=== PATIENT | female | born 1935 | race Caucasian/White ===

== ENCOUNTER 2016-03-15 11:25 | Outpatient (CLI) | payer MEDICARE, OTHER | END 2016-03-15 11:26 | disposition home or self-care (01) | DX: I48.91 Unspecified atrial fibrillation (principal); Z79.01 Long term (current) use of anticoagulants ==

== ENCOUNTER 2016-04-12 11:28 | Outpatient (CLI) | payer MEDICARE, OTHER | END 2016-04-12 11:29 | disposition home or self-care (01) | DX: I48.91 Unspecified atrial fibrillation (principal); Z79.01 Long term (current) use of anticoagulants ==

== ENCOUNTER 2016-04-26 13:29 | Outpatient (CLI) | payer MEDICARE, OTHER | END 2016-04-26 13:30 | disposition home or self-care (01) | DX: I48.91 Unspecified atrial fibrillation (principal); Z79.01 Long term (current) use of anticoagulants ==

== ENCOUNTER 2016-05-10 09:30 | Outpatient (CLI) | payer MEDICARE, OTHER | END 2016-05-10 09:31 | DX: I48.91 Unspecified atrial fibrillation (principal); Z79.01 Long term (current) use of anticoagulants ==

== ENCOUNTER 2016-05-24 11:56 | Outpatient (CLI) | payer MEDICARE, OTHER | END 2016-05-24 11:57 | disposition home or self-care (01) | DX: I48.91 Unspecified atrial fibrillation (principal); Z79.01 Long term (current) use of anticoagulants ==

== ENCOUNTER 2016-06-21 09:45 | Outpatient (CLI) | payer MEDICARE, OTHER | END 2016-06-21 23:59 | disposition home or self-care (01) | DX: I48.91 Unspecified atrial fibrillation (principal); Z79.01 Long term (current) use of anticoagulants ==

== ENCOUNTER 2016-06-28 13:22 | Outpatient (CLI) | payer MEDICARE, OTHER | END 2016-06-28 13:23 | disposition home or self-care (01) | DX: I48.91 Unspecified atrial fibrillation (principal); Z79.01 Long term (current) use of anticoagulants ==

== ENCOUNTER 2016-07-12 13:44 | Outpatient (CLI) | payer MEDICARE, OTHER | END 2016-07-12 23:59 | disposition home or self-care (01) | LOC: LAB.N 13:44 | PROVIDERS: ATTEND Internal Medicine | DX: I48.91 Unspecified atrial fibrillation (principal); Z79.01 Long term (current) use of anticoagulants | CPT/HCPCS: 85610 ==

== ENCOUNTER 2016-08-09 08:00 | Outpatient (CLI) | payer MEDICARE, OTHER | END 2016-08-09 08:01 | disposition home or self-care (01) | LOC: LAB.N 08:00 | PROVIDERS: ATTEND Internal Medicine | DX: I48.91 Unspecified atrial fibrillation (principal); Z79.01 Long term (current) use of anticoagulants | CPT/HCPCS: 85610 ==

== ENCOUNTER 2016-09-06 08:57 | Outpatient (CLI) | payer MEDICARE, OTHER | END 2016-09-06 23:59 | disposition home or self-care (01) | LOC: LAB.N 08:57 | PROVIDERS: ATTEND Internal Medicine | DX: I48.91 Unspecified atrial fibrillation (principal) | CPT/HCPCS: 85610 ==

== ENCOUNTER 2016-10-11 08:00 | Outpatient (CLI) | payer MEDICARE, OTHER | END 2016-10-11 08:01 | disposition home or self-care (01) | LOC: LAB.N 08:00 | PROVIDERS: ATTEND Internal Medicine | DX: I48.91 Unspecified atrial fibrillation (principal); Z79.01 Long term (current) use of anticoagulants | CPT/HCPCS: 85610 ==

== ENCOUNTER 2016-11-08 20:24 | Outpatient (CLI) | payer MEDICARE, OTHER | END 2016-11-08 20:25 | disposition home or self-care (01) | LOC: LAB.N 20:24 | PROVIDERS: ATTEND Internal Medicine | DX: I48.91 Unspecified atrial fibrillation (principal); Z79.01 Long term (current) use of anticoagulants | CPT/HCPCS: 85610 ==

== ENCOUNTER 2016-11-22 09:13 | Outpatient (CLI) | payer MEDICARE, OTHER | END 2016-11-22 09:14 | disposition home or self-care (01) | LOC: LAB.N 09:13 | PROVIDERS: ATTEND Internal Medicine | DX: I48.91 Unspecified atrial fibrillation (principal); Z79.01 Long term (current) use of anticoagulants | CPT/HCPCS: 85610 ==

== ENCOUNTER 2016-12-27 10:00 | Outpatient (CLI) | payer MEDICARE, OTHER | END 2016-12-27 10:01 | disposition home or self-care (01) | LOC: LAB.N 10:00 | PROVIDERS: ATTEND Internal Medicine | DX: I48.91 Unspecified atrial fibrillation (principal); Z79.01 Long term (current) use of anticoagulants | CPT/HCPCS: 85610 ==

== ENCOUNTER 2016-12-27 10:13 | Outpatient (CLI) | payer MEDICARE, OTHER | END 2016-12-27 10:14 | disposition home or self-care (01) | LOC: LAB 10:13 | PROVIDERS: ATTEND Internal Medicine | DX: Z53.9 Procedure and treatment not carried out, unspecified reason (principal) ==

== ENCOUNTER 2017-01-24 15:08 | Outpatient (CLI) | payer MEDICARE, OTHER | END 2017-01-24 15:09 | disposition home or self-care (01) | LOC: LAB.N 15:08 | PROVIDERS: ATTEND Internal Medicine | DX: I48.91 Unspecified atrial fibrillation (principal); Z79.01 Long term (current) use of anticoagulants | CPT/HCPCS: 85610 ==

== ENCOUNTER 2017-01-31 08:00 | Outpatient (CLI) | payer MEDICARE, OTHER | END 2017-01-31 23:59 | LOC: LAB.N 08:00 | PROVIDERS: ATTEND Internal Medicine | DX: Z53.9 Procedure and treatment not carried out, unspecified reason (principal) ==

== ENCOUNTER 2017-02-02 15:08 | Outpatient (CLI) | payer MEDICARE, OTHER | END 2017-02-02 15:09 | disposition home or self-care (01) | LOC: LAB.N 15:08 | PROVIDERS: ATTEND Internal Medicine | DX: I48.91 Unspecified atrial fibrillation (principal); Z79.01 Long term (current) use of anticoagulants | CPT/HCPCS: 85610 ==

== ENCOUNTER 2017-02-16 10:38 | Outpatient (CLI) | payer MEDICARE, OTHER | END 2017-02-16 10:39 | disposition home or self-care (01) | LOC: LAB.N 10:38 | PROVIDERS: ATTEND Internal Medicine | DX: I48.91 Unspecified atrial fibrillation (principal); Z79.01 Long term (current) use of anticoagulants | CPT/HCPCS: 85610 ==

== ENCOUNTER 2017-03-16 09:41 | Outpatient (CLI) | payer MEDICARE, OTHER | END 2017-03-16 09:42 | disposition home or self-care (01) | LOC: LAB.N 09:41 | PROVIDERS: ATTEND Internal Medicine | DX: I48.91 Unspecified atrial fibrillation (principal); Z79.01 Long term (current) use of anticoagulants | CPT/HCPCS: 85610 ==

== ENCOUNTER 2017-04-13 09:40 | Outpatient (CLI) | payer MEDICARE, OTHER | END 2017-04-13 09:41 | disposition home or self-care (01) | LOC: LAB.N 09:40 | PROVIDERS: ATTEND Internal Medicine | DX: I48.91 Unspecified atrial fibrillation (principal); Z79.01 Long term (current) use of anticoagulants | CPT/HCPCS: 85610 ==

== ENCOUNTER 2017-04-25 10:35 | Outpatient (CLI) | payer MEDICARE, OTHER | END 2017-04-25 10:36 | disposition home or self-care (01) | LOC: LAB.N 10:35 | PROVIDERS: ATTEND Internal Medicine | DX: I48.91 Unspecified atrial fibrillation (principal); Z79.01 Long term (current) use of anticoagulants | CPT/HCPCS: 85610 ==

== ENCOUNTER 2017-04-27 06:51 | Day surgery (SDC) | payer MEDICARE, OTHER ==
[2017-04-27] MEDS ORDERED: KETOROLAC 0.45% OPHTH DROPS ONE (07:00)
[2017-04-27] MEDS ORDERED: CYCLOPENTOLATE 1% OPHTH DROPS 2 ML ONE (07:00)
[2017-04-27] MEDS ORDERED: PROPARACAINE 0.5% OPHTH DROPS 15 ML ONE (07:00)
[2017-04-27] MEDS ORDERED: PHENYLEPHRINE 2.5% OPHTH 2 ML DROPS ONE (07:00)
[2017-04-27] MEDS ORDERED: TIMOLOL 0.5% OPHTH DROPS ONE (07:03)
[2017-04-27] MEDS ORDERED: BRIMONIDINE 0.2% OPHTH DROPS 5 ML ONE (07:03)
[2017-04-27] MEDS ORDERED: PHENYLEPHRINE 2.5% OPHTH 2 ML DROPS RIGHTEYE ONE (07:20)
[2017-04-27] MEDS ORDERED: CYCLOPENTOLATE 1% OPHTH DROPS 2 ML RIGHTEYE ONE (07:20)
[2017-04-27] MEDS ORDERED: KETOROLAC 0.45% OPHTH DROPS RIGHTEYE ONE (07:20)
[2017-04-27] MEDS ORDERED: PROPARACAINE 0.5% OPHTH DROPS 15 ML RIGHTEYE ONE ×2 (07:20→08:10)
[2017-04-27] MEDS ORDERED: LACTATED RINGERS 500 ML IV ONE (07:28)
[2017-04-27] MEDS ORDERED: MIDAZOLAM 2 MG/2 ML VIAL IVP ONE (08:05)
[2017-04-27] MEDS ORDERED: BRIMONIDINE 0.2% OPHTH DROPS 5 ML OPTH ONE (08:08)
[2017-04-27] MEDS ORDERED: EPINEPHrine 1 MG/ML AMP IVP ONE (08:08)
[2017-04-27] MEDS ORDERED: CHONDR SULF/HYALURONATE SYRINGE IO ONE (08:09)
[2017-04-27] MEDS ORDERED: TIMOLOL 0.5% OPHTH DROPS OPTH ONE (08:09)
[2017-04-27] MEDS ORDERED: BSS/LIDOCAINE/EPINEPHRINE 1 ML SYRINGE IO ONE ×2 (08:09)
[2017-04-27] MEDS ORDERED: TRIAMCIN/MOXIFLOX/VANCO 1 ML VIAL IO ONE (08:09)
[2017-04-27 09:01] VITALS: BP 140/80
--- NOTE | 2017-04-27 09:03 | OPERATIVE REPORT ---
DATE OF SERVICE: 04/27/2017 Physician: Jonathon Galvez MD PREOPERATIVE DIAGNOSIS: Visually significant cataract, right eye. This was her first cataract surgery. POSTOPERATIVE DIAGNOSIS: Visually significant cataract, right eye. This was her first cataract surgery. NAME OF PROCEDURE: Phacoemulsification with posterior chamber intraocular lens implant, right eye. SURGEON: Jonathon Galvez MD ANESTHESIA: Monitored anesthesia care. COMPLICATIONS: None. OPERATIVE INDICATIONS: This is a 81-year-old woman with progressive vision loss in the right eye due to 4+ nuclear sclerotic and 1+ cortical cataract. Best corrected visual acuity was 20/25 with glare to 20/400 in the right eye. INDICATIONS FOR SURGERY: Overall decrease in vision, and difficulty reading. She was consented at length concerning the risks and benefits of cataract surgery, after which she expressed a desire to proceed with surgery. OPERATIVE PROCEDURE: The patient was taken into OR #3 and placed under monitored anesthesia care. A surgical timeout was conducted confirming correct patient, correct procedure, and correct surgical site. She was given topical anesthesia, and then prepped and draped in the usual sterile fashion. The eye was entered at the 12 and 9 o'clock positions. Intracameral Shugarcaine was injected into the anterior chamber, followed by Viscoat. A continuous-tear curvilinear capsulorrhexis was performed. The nucleus was hydrodissected and phacoemulsified. The cortex was evacuated using automated infusion aspiration. Provisc was injected into the capsular bag, and a 21.5 diopter intraocular lens was inserted in the bag. Approximately 0.8 mL of a mixture of triamcinolone and moxifloxacin was injected subconjunctivally in the superior quadrant for infection and inflammation prophylaxis. I and A was used to evacuate the viscoelastic material. The eye was inflated to physiologic pressure using a balanced salt solution and found to be watertight. The patient was taken from the operating room in good condition and given postoperative instructions. TD: 04/27/2017 09:02
== END 2017-04-27 06:52 | disposition home or self-care (01) ==
LOC: SDS 06:51
PROVIDERS: ATTEND Ophthalmology
PROC: 08RJ3JZ Replacement of Right Lens with Synthetic Substitute, Percutaneous Approach (ICD-10-PCS; principal; 2017-04-27 08:00)
DX: H25.811 Combined forms of age-related cataract, right eye (principal); I48.91 Unspecified atrial fibrillation; Z79.01 Long term (current) use of anticoagulants; I10 Essential (primary) hypertension
CPT/HCPCS: 66984; A9270; J3490; V2632

== ENCOUNTER 2017-05-09 09:11 | Outpatient (CLI) | payer MEDICARE, OTHER | END 2017-05-09 09:12 | disposition home or self-care (01) | LOC: LAB.N 09:11 | PROVIDERS: ATTEND Internal Medicine | DX: I48.91 Unspecified atrial fibrillation (principal); Z79.01 Long term (current) use of anticoagulants | CPT/HCPCS: 85610 ==

== ENCOUNTER 2017-06-06 08:00 | Outpatient (CLI) | payer MEDICARE, OTHER | END 2017-06-06 08:01 | disposition home or self-care (01) | LOC: LAB.N 08:00 | PROVIDERS: ATTEND Internal Medicine | DX: I48.91 Unspecified atrial fibrillation (principal); Z79.01 Long term (current) use of anticoagulants | CPT/HCPCS: 85610 ==

== ENCOUNTER 2017-06-15 07:44 | Day surgery (SDC) | payer MEDICARE, OTHER ==
[~2017-06-15 07:44] MED LIST: BRIMONIDINE 0.2% OPHTH DROPS 5 ML ONE; PROPARACAINE 0.5% OPHTH DROPS 15 ML ONE; TIMOLOL 0.5% OPHTH DROPS ONE
[2017-06-15] MEDS ORDERED: LACTATED RINGERS 1,000 ML IV ONE (08:08)
[2017-06-15] MEDS ORDERED: KETOROLAC 0.45% OPHTH DROPS ONE (08:12)
[2017-06-15] MEDS ORDERED: PROPARACAINE 0.5% OPHTH DROPS 15 ML ONE (08:13)
[2017-06-15] MEDS ORDERED: CYCLOPENTOLATE 1% OPHTH DROPS 2 ML ONE (08:13)
[2017-06-15] MEDS ORDERED: PHENYLEPHRINE 2.5% OPHTH 2 ML DROPS ONE (08:13)
[2017-06-15] MEDS ORDERED: BRIMONIDINE 0.2% OPHTH DROPS 5 ML OPTH ONE (09:20)
[2017-06-15] MEDS ORDERED: EPINEPHrine 1 MG/ML AMP IVP ONE (09:20)
[2017-06-15] MEDS ORDERED: BSS/LIDOCAINE/EPINEPHRINE 1 ML SYRINGE IO ONE (09:21)
[2017-06-15] MEDS ORDERED: TIMOLOL 0.5% OPHTH DROPS OPTH ONE (09:21)
[2017-06-15] MEDS ORDERED: CHONDR SULF/HYALURONATE SYRINGE IO ONE (09:21)
[2017-06-15] MEDS ORDERED: PROPARACAINE 0.5% OPHTH DROPS 15 ML LEFTEYE ONE (09:22)
[2017-06-15] MEDS ORDERED: TRIAMCIN/MOXIFLOX/VANCO 1 ML VIAL IO ONE ×2 (09:22)
[2017-06-15 09:41] VITALS: BP 179/68
--- NOTE | 2017-06-15 09:56 | OPERATIVE REPORT ---
DATE OF SERVICE: 06/15/2017 Physician: Jonathon Galvez MD DATE OF SURGERY: 06/15/2017 PREOPERATIVE DIAGNOSIS: Visually significant cataract, left eye. Cataract surgery was performed on the right eye on 04/27/2017. POSTOPERATIVE DIAGNOSIS: Visually significant cataract, left eye. Cataract surgery was performed on the right eye on 04/27/2017. PROCEDURE: Phacoemulsification with posterior chamber intraocular lens implant, left eye. SURGEON: Jonathon Galvez MD ANESTHESIA: Monitored anesthesia care. COMPLICATIONS: None. OPERATIVE INDICATIONS: This is a 81-year-old woman with progressive vision loss in the left eye due to 4+ nuclear sclerotic and trace posterior subcapsular cataract. Best corrected visual acuity was 20/30 with glare to 20/400 in the left eye. Indications for surgery are overall decrease in vision, difficulty seeing words on the computer screen, and difficulty reading. She was consented at length concerning risks and benefits of cataract surgery, after which she expressed a desire to proceed with surgery. OPERATIVE PROCEDURE: The patient was taken to OR #3 and placed under monitored anesthesia care. A surgical timeout was conducted confirming correct patient, correct procedure, and correct surgical site. She was given topical anesthesia, and then prepped and draped in the usual sterile fashion. The eye was entered at the 6 and 3 o'clock positions. Intracameral Shugarcaine was injected into the anterior chamber, followed by Viscoat. A continuous-tear curvilinear capsulorrhexis was performed. The nucleus was hydrodissected and phacoemulsified. The cortex was evacuated using automated infusion and aspiration. Provisc was injected in the capsular bag, and a 21.5 diopter intraocular lens was inserted in the bag. Approximately 0.8 mL of a mixture of triamcinolone and moxifloxacin was injected subconjunctivally in the superior quadrant for infection and inflammation prophylaxis. I and A was used to evacuate the viscoelastic materials. The eye was inflated to physiologic pressure using balanced salt solution and found to be watertight. The patient was taken from the operating room in good condition and given postoperative instructions. TD: 06/15/2017 09:55
[2017-06-15] MEDS ORDERED: MIDAZOLAM 2 MG/2 ML VIAL IVP ONE (10:30)
== END 2017-06-15 07:45 | disposition home or self-care (01) ==
LOC: SDS 07:44
PROVIDERS: ATTEND Ophthalmology
PROC: 08RK3JZ Replacement of Left Lens with Synthetic Substitute, Percutaneous Approach (ICD-10-PCS; principal; 2017-06-15 09:00)
DX: H25.812 Combined forms of age-related cataract, left eye (principal); I48.91 Unspecified atrial fibrillation; Z79.01 Long term (current) use of anticoagulants; I10 Essential (primary) hypertension; G72.81 Critical illness myopathy
CPT/HCPCS: 66984; A9270; J3490; J7120; V2632

== ENCOUNTER 2017-06-22 13:57 | Outpatient (CLI) | payer MEDICARE, OTHER | END 2017-06-22 13:58 | disposition home or self-care (01) | LOC: LAB.N 13:57 | PROVIDERS: ATTEND Internal Medicine | DX: I48.91 Unspecified atrial fibrillation (principal); Z79.01 Long term (current) use of anticoagulants | CPT/HCPCS: 85610 ==

== ENCOUNTER 2017-06-29 10:20 | Outpatient (CLI) | payer MEDICARE, OTHER | END 2017-06-29 10:21 | disposition home or self-care (01) | LOC: LAB 10:20 | PROVIDERS: ATTEND Internal Medicine | DX: I48.91 Unspecified atrial fibrillation (principal); Z79.01 Long term (current) use of anticoagulants | CPT/HCPCS: 85610 ==

== ENCOUNTER 2017-07-13 09:41 | Outpatient (CLI) | payer MEDICARE, OTHER | END 2017-07-13 09:42 | LOC: LAB.N 09:41 | PROVIDERS: ATTEND Internal Medicine | DX: I48.91 Unspecified atrial fibrillation (principal); Z79.01 Long term (current) use of anticoagulants | CPT/HCPCS: 85610 ==

== ENCOUNTER 2017-07-26 09:52 | Emergency (ER) | payer MEDICARE, OTHER ==
--- NOTE | 2017-07-26 10:39 | ED Physician Documentation ---
History of Present Illness - Stated complaint Stated Complaint: LOWER BACK PX/VOMITING - Chief complaint Chief Complaint: Resp - Additonal information Additional information: hx from pt 81 f to ER with several complaints last night at 1130 developed twan flank pain and pain nausea/vomit and need to urinate then became very SOA noit better with her hoem O2 and BiPAP no fever no cough no diarrhea no dysuria has a mm dz she gets IV tx fro but this is different s/p margarita and hepatic aneurysm coil her SNF also thought she might be back in a fib - hx of same feeling better now Review of Systems Constitutional: denies: Fever Throat: denies: Sore throat Cardiac: denies: Chest pain / pressure Respiratory: reports: Dyspnea. denies: Cough GI: reports: Abdominal Pain, Nausea, Vomiting. denies: Diarrhea : reports: Other (urgency) Musculoskeletal: reports: Back pain Endocrine: denies: Easy bruising / bleeding Immunocompromised: denies: Immunocompromised PD PAST MEDICAL HISTORY - Past Medical History Cardiovascular: Hypertension, Atrial fibrillation Respiratory: Shortness of breath, Sleep apnea, CPAP use, Other Endocrine/Autoimmune: HyPERthyroidism GI: Chronic diarrhea : Other HEENT: Other Psych: Anxiety Musculoskeletal: Osteoporosis, Chronic back pain Derm: None Other Past Medical History: "necrotizing myositis treated with IV immunoglobilin " - Past Surgical History Past Surgical History: Yes 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 - Present Medications Home Medications: Ambulatory Orders Medication Instructions Recorded Confirmed Dapsone 100 mg PO DAILY 12/19/14 06/15/17 Folic Acid 1.5 mg PO DAILY 12/19/14 06/15/17 Methotrexate 15 mg IM ONCE MDD once 12/19/14 06/15/17/Monday Metoprolol Tartrate 200 mg PO DAILY 12/19/14 06/15/17 Multivitamin [Multivitamins] 3 each PO DAILY 12/19/14 06/15/17 Potassium Chloride [K-Dur] 40 meq PO DAILY 12/19/14 06/15/17 Warfarin Sodium 0 mg PO DAILY 12/19/14 06/15/17 raNITIdine [Zantac] 150 mg PO DAILY 12/19/14 06/01/17 traZODone [Desyrel] 100 mg PO HS 12/19/14 06/15/17 Levothyroxine [Synthroid] 75 mcg PO QDAC 12/09/15 06/01/17 hydroCHLOROthiazide 25 mg PO DAILY 12/09/15 06/15/17 [Hydrochlorothiazide] Alendronate [Fosamax] 07/26/17 Cefuroxime Axetil [Cefuroxime] 500 mg PO BID #19 tablet 07/26/17 Igiv IV 07/26/17 Prednisone 5 mg DAILY 07/26/17 07/26/17 - Allergies Allergies/Adverse Reactions: Allergies Allergy/AdvReac Type Severity Reaction Status Date / Time Sulfa (Sulfonamide Allergy Unknown Verified 07/26/17 10:24 Antibiotics) - Social History Does the pt smoke?: Yes Smoking Status: Former smoker Does the pt drink ETOH?: No - Immunizations Immunizations are current?: No Immunizations: TDAP >10years/unknown - POLST Patient has POLST: No PD ED PE NORMAL - Vitals Vital signs reviewed: Yes - General General: Alert and oriented X 3 - HEENT HEENT: Atraumatic - Cardiac Cardiac: RRR - Respiratory Respiratory: No respiratory distress, Clear bilaterally - Abdomen Abdomen: Soft, Non tender - Back Back: No CVA TTP, No spinal TTP - Derm Derm: Normal color - Extremities Extremities: No edema, No calf tenderness / cord - Neuro Neuro: Alert and oriented X 3 Results - Vitals Vitals: Vital Signs - 24 hr 07/26/17 07/26/17 07/26/17 10:19 11:30 11:55 Temperature 36.9 C Heart Rate 65 86 92 Respiratory 18 16 22 Rate Blood Pressure 121/83 H 135/82 H 135/59 H O2 Saturation 94 93 92 07/26/17 12:30 Temperature Heart Rate 88 Respiratory 22 Rate Blood Pressure 154/62 H O2 Saturation 95 Oxygen O2 Source [] Nasal cannula O2 Source [] Nasal cannula O2 Source Nasal cannula Oxygen Flow Rate 3 - EKG (time done) 1019 Rate: Rate (enter#) (79) Rhythm: NSR, Other (PACs) [place]: Normal Intervals: Normal RI QRS: Normal Ischemia: Non specific changes (flat T inf and lat) - Labs Labs: Laboratory Tests 07/26/17 07/26/17 07/26/17 10:43 10:43 10:43 WBC 12.9 H RBC 2.95 L Hgb 10.2 L Hct 30.5 L MCV 103.3 H MCH 34.6 H MCHC 33.5 RDW 14.5 Plt Count 142 MPV 9.6 Neut # 10.5 H Lymph # 0.8 L Desha # 1.6 H Eos # 0.0 Baso # 0.1 Absolute Nucleated RBC 0.00 Nucleated RBC % 0.0 Sodium 129 L Potassium 3.1 L Chloride 91 L Carbon Dioxide 27 Anion Gap 11.0 BUN 19 Creatinine 0.8 Estimated GFR (MDRD) 69 L Glucose 128 H Calcium 8.7 Total Bilirubin 1.7 H AST 25 ALT 14 Alkaline Phosphatase 27 L Troponin I < 0.04 Total Protein 7.4 Albumin 4.1 Globulin 3.3 Albumin/Globulin Ratio 1.2 Lipase 35 Urine Color Urine Clarity Urine pH Ur Specific [place] Urine Protein Urine Glucose (UA) Urine Ketones Urine Occult Blood Urine Nitrite Urine Bilirubin Urine Urobilinogen Ur Leukocyte Esterase Urine RBC Urine WBC Urine WBC Clumps Ur Squamous Epith Cells Urine Bacteria Ur Microscopic Review Urine Culture Comments 07/26/17 11:29 WBC RBC Hgb Hct MCV MCH MCHC RDW Plt Count MPV Neut # Lymph # Desha # Eos # Baso # Absolute Nucleated RBC Nucleated RBC % Sodium Potassium Chloride Carbon Dioxide Anion Gap BUN Creatinine Estimated GFR (MDRD) Glucose Calcium Total Bilirubin AST ALT Alkaline Phosphatase Troponin I Total Protein Albumin Globulin Albumin/Globulin Ratio Lipase Urine Color YELLOW Urine Clarity CLOUDY Urine pH 6.5 Ur Specific [place] 1.015 Urine Protein 100 H Urine Glucose (UA) NEGATIVE Urine Ketones NEGATIVE Urine Occult Blood MODERATE H Urine Nitrite NEGATIVE Urine Bilirubin NEGATIVE Urine Urobilinogen 4 H Ur Leukocyte Esterase LARGE H Urine RBC 11-25 H Urine WBC >25 H Urine WBC Clumps PRESENT Ur Squamous Epith Cells FEW Squamous Urine Bacteria Few Ur Microscopic Review INDICATED Urine Culture Comments INDICATED - Rads (name of study) CXR Radiology: See rad report (possible developing RUL infiltrate vs chronic opacity , scarring, chronic T spine comp fx) CT AP Radiology: See rad report (possible subacute l1 comp fx, prior margarita, atehrosclerosis, prior hepatic embolization, no FF) PD MEDICAL DECISION MAKING - ED course ED course: labs reviewed anemia, hyponatremia hypokalemia not new - K repleted bili elev vut s/p margarita has a UTI UA + blood but no stone on CT also CT shows a possible subacute L1 comp fx thjough pt has more flank pain than spine pain so likely incidental CXR = increase in prior R medial upper lobe opacity could be chronic or could be pna, scarring, chronic T spine comp fx given that pt has both UTI and possible pna and has some sort of muscular or connective tissue disorder so would prefer to avoid cipro/levaquin, augemtnin interacts with methotrexate, will tx with cefuroxime CXR and CT results reviewed with pt and family Departure - Departure Disposition: 01 Home, Self Care Clinical Impression: Compression fracture UTI (urinary tract infection) Qualifiers: Urinary tract infection type: acute pyelonephritis Qualified Code(s): N10 - Acute pyelonephritis Pneumonia Qualifiers: Pneumonia type: due to unspecified organism Laterality: right Lung location: upper lobe of lung Qualified Code(s): J18.1 - Lobar pneumonia, unspecified organism Condition: Fair Instructions: ED Pneumonia Adult, ED Kidney Infec Female Follow-Up: Eamon Hughes MD [Primary Care Provider] - Prescriptions: Cefuroxime Axetil [Cefuroxime] 500 mg PO BID #19 tablet Comments: Please have your INR monitored while you are on antibiotics
[2017-07-26 10:54] LABS: BASOPHILS # (AUTO) 0.1 10^3/uL (0.0-0.1); BASOPHILS % (AUTO) 0.4 %; HGB - HEMOGLOBIN 10.2 g/dL (12.0-16.0); LYMPHOCYTES # (AUTO) 0.8 10^3/uL (1.5-3.5); LYMPHOCYTES % (AUTO) 6.6 %; MEAN CORPUSCULAR HEMOGLOBIN 34.6 pg (27.0-31.0); MEAN CORPUSCULAR HGB CONC 33.5 g/dL (32.0-36.0); MEAN CORPUSCULAR VOLUME 103.3 fL (81.0-99.0); MEAN PLATELET VOLUME 9.6 fL (7.9-10.8); MONOCYTES # (AUTO) 1.6 10^3/uL (0.0-1.0); NEUTROPHILS # (AUTO) 10.5 10^3/uL (1.5-6.6); PLT - PLATELET COUNT 142 10^3/uL (130-450); RED BLOOD COUNT 2.95 10^6/uL (4.20-5.40); RED CELL DISTRIBUTION WIDTH 14.5 % (12.0-15.0); WHITE BLOOD COUNT 12.9 x10^3/uL (4.8-10.8)
[2017-07-26 11:06] LABS: ALBUMIN 4.1 g/dL (3.2-5.5); ALBUMIN/GLOBULIN RATIO 1.2 (1.0-2.2); BILIRUBIN,TOTAL 1.7 mg/dL (0.2-1.0); CALCIUM 8.7 mg/dL (8.5-10.3); CREATININE 0.8 mg/dL (0.4-1.0); TOTAL PROTEIN 7.4 g/dL (6.7-8.2)
--- NOTE | 2017-07-26 11:15 | XRAY Report ---
EXAM: CHEST RADIOGRAPHY EXAM DATE: 07/26/2017 11:02 AM. CLINICAL HISTORY: Chest pain. Back pain. Shortness of air. COMPARISON: 01/04/2017. 08/23/2016. TECHNIQUE: 2 views. FINDINGS: Lungs/Pleura: Increasing right medial upper lobe opacity. Biapical parenchymal scarring and pleural t hickening. Interstitium is prominent. Linear bibasilar scar/atelectasis. No pneumothorax. No parenchy mal cavities . No pleural effusions. Mediastinum: Heart size upper normal. Aortic atherosclerosis. Other: Degenerative changes of the thoracic spine. Chronic compression deformity of a thoracic verteb ral body, unchanged. IMPRESSION: 1. Increase in right medial upper lung opacity possibly early consolidation and/or chronic parenchyma l changes. 2. Biapical parenchymal scarring and pleural thickening. Bilateral lower lobe parenchymal scarring. 3. Chronic moderate compression deformity of an upper thoracic vertebral body, unchanged. [facility] Referring Provider Line: [phone] SITE ID: [id number]
[2017-07-26 11:34] LABS: BILIRUBIN,URINE NEGATIVE (NEGATIVE); GLUCOSE, URINE (UA) NEGATIVE (NEGATIVE); KETONES,URINE (UA) NEGATIVE (NEGATIVE); LEUKOCYTE ESTERASE, URINE LARGE (NEGATIVE); NITRITE,URINE NEGATIVE (NEGATIVE); OCCULT BLOOD,URINE MODERATE (NEGATIVE); PH,URINE 6.5 PH (5.0-7.5); PROTEIN,URINE 100 mg/dL (NEGATIVE); UROBILINOGEN,URINE 4 E.U./dL (NORMAL)
[2017-07-26 11:36] LABS: CLARITY,URINE CLOUDY (CLEAR)
[2017-07-26 11:43] LABS: BACTERIA,URINE Few /HPF (None Seen); SQUAMOUS EPITHELIAL CELL,UR FEW Squamous (<= Few); WBC CLUMPS,URINE PRESENT
--- NOTE | 2017-07-26 12:19 | CT Report ---
EXAM: CT ABDOMEN EXAM DATE: 07/26/2017 11:44 AM. CLINICAL HISTORY: Abd and back pain NV s/p margarita. Coil treatment of hepatic aneurysm. COMPARISON: Abdominal CT with IV contrast 05/13/2014. TECHNIQUE: Routine helical CT imaging was performed through the abdomen. IV contrast: None Enteric c ontrast: No. Reconstruction: Coronal and sagittal. In accordance with CT protocol optimization, one or more of the following dose reduction techniques w ere utilized for this exam: automated exposure control, adjustment of mA and/or KV based on patient s ize, or use of iterative reconstructive technique. FINDINGS: Lung Bases: Mild cardiomegaly. Liver: Normal. No masses. Gallbladder/Bile Ducts: Prior cholecystectomy. Spleen: Normal. Pancreas: Normal. Adrenal Glands: Normal. Kidneys: Probable small posterior left renal cyst with attenuation 17 HU. Exophytic left lower renal cyst measuring 1.1 cm with attenuation 15 HU. No masses or hydronephrosis. Peritoneal Cavity/Bowel: Lipomatous hypertrophy of ileocecal valve. No free fluid, free air or adenop athy. No masses or acute inflammatory process. Appendix not identified. Fat-containing hernia immediately inferior to umbilicus. Vasculature: Hepatic arterial aneurysm coils. Extensive abdominal aortic and iliac arterial calcifica tions. No abdominal aortic aneurysm. Bones: Probable subacute mild L1 compression fracture, new since 05/13/2014. Lower lumbar spine degen erative changes. Other: None. IMPRESSION: 1. Mild L1 compression fracture is probably subacute with increased density along superior endplate. No retropulsed osseous fragments. 2. Prior cholecystectomy. 3. Atherosclerosis. 4. No bowel obstruction evident within the abdomen. 5. Prior hepatic arterial coil embolization. No adjacent fluid. [facility] Referring Provider Line: [phone] SITE ID: [id number]
[2017-07-26] MEDS ORDERED: POTASSIUM BICARB 25 MEQ TABLET PO STA (13:37)
[2017-07-26] MEDS ORDERED: cefUROXime axetil 250 MG TABLET PO STA (13:38)
[2017-07-26 16:29] VITALS: BP 137/54
== END 2017-07-26 14:00 | disposition home or self-care (01) ==
LOC: ED 09:52
DX: N10 Acute pyelonephritis (principal); J18.1 Lobar pneumonia, unspecified organism; S32.019A Unspecified fracture of first lumbar vertebra, initial encounter for closed fracture; X58.XXXA Exposure to other specified factors, initial encounter; R94.31 Abnormal electrocardiogram [ECG] [EKG]; I10 Essential (primary) hypertension; I48.91 Unspecified atrial fibrillation; E05.90 Thyrotoxicosis, unspecified without thyrotoxic crisis or storm; D64.9 Anemia, unspecified; E87.1 Hypo-osmolality and hyponatremia; E87.6 Hypokalemia; Z79.01 Long term (current) use of anticoagulants; Z87.891 Personal history of nicotine dependence
CPT/HCPCS: 36415; 71046; 74150; 80053; 81001; 83690; 84484; 85025; 85610; 87077; 87086; 87181; 93005; 99284; A9270; 81003

== ENCOUNTER 2017-08-15 08:00 | Outpatient (CLI) | payer MEDICARE, OTHER | END 2017-08-15 08:01 | disposition home or self-care (01) | LOC: LAB.N 08:00 | PROVIDERS: ATTEND Internal Medicine | DX: I48.91 Unspecified atrial fibrillation (principal); Z79.01 Long term (current) use of anticoagulants | CPT/HCPCS: 85610 ==

== ENCOUNTER 2017-08-21 14:45 | Outpatient (CLI) | END 2017-08-21 14:46 | disposition home or self-care (01) ==

== ENCOUNTER 2017-08-24 08:00 | Outpatient (CLI) | payer MEDICARE, OTHER | END 2017-08-24 08:01 | disposition home or self-care (01) | LOC: LAB.N 08:00 | PROVIDERS: ATTEND Internal Medicine | DX: I48.91 Unspecified atrial fibrillation (principal); Z79.01 Long term (current) use of anticoagulants | CPT/HCPCS: 85610 ==

== ENCOUNTER 2017-08-31 09:15 | Outpatient (CLI) | payer MEDICARE, OTHER | END 2017-08-31 09:16 | disposition home or self-care (01) | LOC: LAB.N 09:15 | PROVIDERS: ATTEND Internal Medicine | DX: I48.91 Unspecified atrial fibrillation (principal); Z79.01 Long term (current) use of anticoagulants | CPT/HCPCS: 85610 ==

== ENCOUNTER 2017-09-28 09:21 | Outpatient (CLI) | payer MEDICARE, OTHER ==
[2017-09-28 13:20] LABS: INR 4.4 (0.8-1.2); PT - PROTHROMBIN TIME 47.4 secs (9.9-12.6)
== END 2017-09-28 09:22 | disposition home or self-care (01) ==
LOC: LAB.N 09:21
PROVIDERS: ATTEND Internal Medicine
DX: I48.91 Unspecified atrial fibrillation (principal); Z79.01 Long term (current) use of anticoagulants
CPT/HCPCS: 36415; 85610

== ENCOUNTER 2017-10-12 09:57 | Outpatient (CLI) | payer MEDICARE, OTHER | END 2017-10-12 09:58 | disposition home or self-care (01) | LOC: LAB 09:57 | PROVIDERS: ATTEND Internal Medicine | DX: I48.91 Unspecified atrial fibrillation (principal); Z79.01 Long term (current) use of anticoagulants | CPT/HCPCS: 85610 ==

== ENCOUNTER 2017-11-07 08:00 | Outpatient (CLI) | payer MEDICARE, OTHER | END 2017-11-07 08:01 | LOC: LAB.N 08:00 | PROVIDERS: ATTEND Internal Medicine | DX: I48.91 Unspecified atrial fibrillation (principal); Z79.01 Long term (current) use of anticoagulants | CPT/HCPCS: 85610 ==

== ENCOUNTER 2017-12-07 08:00 | Outpatient (CLI) | payer MEDICARE, OTHER | END 2017-12-07 08:01 | disposition home or self-care (01) | LOC: LAB.N 08:00 | PROVIDERS: ATTEND Internal Medicine | DX: I48.91 Unspecified atrial fibrillation (principal); Z79.01 Long term (current) use of anticoagulants | CPT/HCPCS: 85610 ==

== ENCOUNTER 2017-12-21 09:14 | Outpatient (CLI) | payer MEDICARE, OTHER | END 2017-12-21 09:15 | disposition home or self-care (01) | LOC: LAB.N 09:14 | PROVIDERS: ATTEND Internal Medicine | DX: I48.91 Unspecified atrial fibrillation (principal); Z79.01 Long term (current) use of anticoagulants | CPT/HCPCS: 85610 ==

== ENCOUNTER 2018-01-04 10:20 | Outpatient (CLI) | payer MEDICARE, OTHER ==
[2018-01-04 11:13] LABS: INR 2.6 (0.8-1.2); PT - PROTHROMBIN TIME 28.6 secs (9.9-12.6)
== END 2018-01-04 10:21 | disposition home or self-care (01) ==
LOC: LAB 10:20
PROVIDERS: ATTEND Internal Medicine
DX: I48.91 Unspecified atrial fibrillation (principal); Z79.01 Long term (current) use of anticoagulants
CPT/HCPCS: 36415; 85610

== ENCOUNTER 2018-01-30 08:00 | Outpatient (CLI) | payer MEDICARE, OTHER ==
[2018-01-30 12:53] LABS: INR 2.3 (0.8-1.2); PT - PROTHROMBIN TIME 25.7 secs (9.9-12.6)
== END 2018-01-30 23:59 | disposition home or self-care (01) ==
LOC: LAB.WCP 08:00
PROVIDERS: ATTEND Internal Medicine
DX: I48.91 Unspecified atrial fibrillation (principal); Z79.01 Long term (current) use of anticoagulants
CPT/HCPCS: 36415; 85610

== ENCOUNTER 2018-03-01 10:09 | Outpatient (CLI) | payer MEDICARE, OTHER | END 2018-03-01 23:59 | disposition home or self-care (01) | LOC: LAB.N 10:09 | PROVIDERS: ATTEND Internal Medicine | DX: I48.91 Unspecified atrial fibrillation (principal); Z79.01 Long term (current) use of anticoagulants; N30.00 Acute cystitis without hematuria | CPT/HCPCS: 85610; 87077; 87086; 87181 ==

== ENCOUNTER 2018-03-01 13:30 | Outpatient (CLI) | payer MEDICARE, OTHER | END 2018-03-01 23:59 | disposition home or self-care (01) | LOC: LAB.R 13:30 | PROVIDERS: ATTEND Nurse Practitioner Primary Care | DX: N30.00 Acute cystitis without hematuria (principal) | CPT/HCPCS: 87077; 87086; 87181 ==

== ENCOUNTER 2018-03-29 08:00 | Outpatient (CLI) | payer MEDICARE, OTHER | END 2018-03-29 23:59 | disposition home or self-care (01) | LOC: LAB.N 08:00 | PROVIDERS: ATTEND Internal Medicine | DX: I48.91 Unspecified atrial fibrillation (principal); Z79.01 Long term (current) use of anticoagulants | CPT/HCPCS: 85610 ==

== ENCOUNTER 2018-04-03 08:00 | Outpatient (CLI) | payer MEDICARE, OTHER | END 2018-04-03 23:59 | disposition home or self-care (01) | LOC: LAB.R 08:00 | PROVIDERS: ATTEND Obstetrics & Gynecology | DX: N81.6 Rectocele (principal) | CPT/HCPCS: 87480; 87510; 87660 ==

== ENCOUNTER 2018-05-13 09:01 | Outpatient (CLI) | payer MEDICARE, OTHER | END 2018-05-13 09:02 | disposition critical access hospital (66) | LOC: EMS 09:01 | PROVIDERS: ATTEND Surgery | DX: S60.212A Contusion of left wrist, initial encounter (principal); S50.12XA Contusion of left forearm, initial encounter; X58.XXXA Exposure to other specified factors, initial encounter; M25.432 Effusion, left wrist; M79.89 Other specified soft tissue disorders; M25.642 Stiffness of left hand, not elsewhere classified; M25.532 Pain in left wrist | CPT/HCPCS: A0425; A0429 ==

== ENCOUNTER 2018-05-13 09:18 | Emergency (ER) | payer MEDICARE, OTHER ==
--- NOTE | 2018-05-13 09:37 | ED Physician Documentation ---
History of Present Illness - Stated complaint Stated Complaint: ARM BRUISE - Chief complaint Chief Complaint: Ext Problem - History of Present Illness Pain level max: 9 - Additonal information Additional information: Patient is a right handed, 82-year-old female with complicated past medical history and currently on anticoagulation of warfarin with last INR of 2.5 presenting with extensive bruising to her left forearm without incident or known trauma. Patient reports that she is on anticoagulation for some sort of myopathy, although she is unable to further specify. Chart review indicates afib, which is likely the reason for anticoagulation. Patient reports that she has been compliant with all medication. Patient reports bruising and pain initially beginning on the ventral surface of the left wrist which extends diffusely over the left forearm almost to the left elbow. Patient reports limited range of motion due to swelling and pain. Patient denies any new trauma or inciting incident otherwise. Patient also denies any particular improving or worsening factors to her symptoms. Also denies other issues such as difficulty breathing, chest pain, abdominal pain, vomiting, urinary stool changes, fever or other concerns. 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 - Present Medications Home Medications: Ambulatory Orders Medication Instructions Recorded Confirmed Potassium Chloride [K-Dur] 40 meq PO DAILY 12/19/14 08/17/17 RX: Dapsone 100 mg PO DAILY 12/19/14 08/17/17 RX: Folic Acid 1.5 mg PO DAILY 12/19/14 08/17/17 RX: Methotrexate 15 mg IM ONCE MDD once 12/19/14 08/17/17/Monday RX: Metoprolol Tartrate 200 mg PO DAILY 12/19/14 08/17/17 RX: Warfarin Sodium 5 mg PO DAILY 12/19/14 08/17/17 raNITIdine [Zantac] 150 mg PO DAILY 12/19/14 08/17/17 traZODone [Desyrel] 100 mg PO HS 12/19/14 04/05/18 Levothyroxine [Synthroid] 75 mcg PO QDAC 12/09/15 08/17/17 RX: hydroCHLOROthiazide 25 mg PO DAILY 12/09/15 08/17/17 [Hydrochlorothiazide] Cefuroxime Axetil [Cefuroxime] 500 mg PO BID #19 tablet 07/26/17 08/17/17 RX: Alendronate [Fosamax] 70 mg PO DAILY 07/26/17 RX: Prednisone 5 mg DAILY 07/26/17 08/17/17 Acetaminophen [Extra Strength 500 mg PO 05/13/18 05/13/18 Non-Aspirin] Estradiol [Vagifem] 10 mcg VG 05/13/18 05/13/18 Saccharomyces Boulardii [Florastor] 250 mg PO 05/13/18 05/13/18 - Allergies Allergies/Adverse Reactions: Allergies Allergy/AdvReac Type Severity Reaction Status Date / Time Sulfa (Sulfonamide Allergy Unknown Verified 05/13/18 09:39 Antibiotics) - Social History Does the pt smoke?: Yes Smoking Status: Former smoker Does the pt drink ETOH?: No Does the pt have substance abuse?: No - Immunizations Immunizations are current?: No Immunizations: TDAP >10years/unknown - POLST Patient has POLST: No PD ED PE NORMAL - General General: Alert and oriented X 3, No acute distress, Well developed/nourished - HEENT HEENT: Atraumatic, EOMI, Ears normal, Moist mucous membranes - Neck Neck: Supple, no meningeal sign - Cardiac Cardiac: RRR, No murmur - Respiratory Respiratory: No respiratory distress, Clear bilaterally - Abdomen Abdomen: Normal bowel sounds, Soft, Non tender, Non distended - Derm Derm: Warm and dry, No rash, Other (Extensive bruising and hematoma overlying ventral side of left wrist and extending onto the dorsal aspect of the left forearm almost to the left elbow, but not including joint space) - Extremities Extremities: No deformity, Other (Tenderness overlying bruising of left forearm.Limited range of motion at left wrist only of left upper extremity given pain and swelling.) - Psych Psych: Normal mood, Normal affect Results - Vitals Vitals: Vital Signs - 24 hr 05/13/18 05/13/18 09:19 12:54 Temperature 36.6 C 36.1 C L Heart Rate 57 L 74 Respiratory 20 16 Rate Blood Pressure 191/84 H 198/101 H O2 Saturation 96 93 Oxygen O2 Source [Without Activity] Nasal cannula O2 Source [With Activity] Nasal cannula O2 Source Room air - Labs Labs: Laboratory Tests 05/13/18 09:50 PT 34.8 H INR 3.1 H APTT 41.3 H PD MEDICAL DECISION MAKING - ED course Complexity details: reviewed old records, re-evaluated patient, considered differential, d/w patient ED course: Patient presents with extensive bruising and hematoma to her left forearm without inciting incident or trauma. Patient is adamant that she did not injure her left arm, but given extensive bruising and discomfort, as well as swelling, feel appropriate to obtain plain films to rule out bony abnormalities including fracture. Although patient is anticoagulated and her last INR was over 2, feel that DVT is less likely, but will obtain ultrasound to further rule out given patient's clinical presentation. Patient otherwise denies new symptoms that would indicate other complicating factors including PE, cardiac etiologies, intra-abdominal etiologies, or other infections.Patient does have several high blood pressure readings while in the ED, but does have history of hypertension and did not take her medications this morning.Do not find other evidence that would indicate this hematoma to be indicative of necrotizing fasciitis or other infection. Plain films did not show presence of gas or bony abnormality. Additionally, ultrasound returned unremarkable. INR was obtained and slightly over 3. Feel most appropriate to hold warfarin today and tomorrow until recheck of INR on Monday. Also asked patient to contact primary care physician tomorrow and possibly move up INR check to tomorrow. Otherwise, feel that she is safe to discharge home with supportive cares and strict return precautions. Patient voiced understanding and is comfortable with this discharge plan. Departure - Departure Disposition: 01 Home, Self Care Clinical Impression: Hematoma Superficial thrombophlebitis Qualifiers: Superficial thrombophlebitis-Involved body area: upper extremity Laterality: left Qualified Code(s): I80.8 - Phlebitis and thrombophlebitis of other sites Condition: Good Instructions: ED Hematoma, ED Phlebitis Superficial Follow-Up: your,doctor [Other] - Tomorrow Comments: Please continue all other home medications as prescribed except for warfarin. Please do not take your warfarin today or tomorrow. Contact your doctor tomorrow for follow-up and if possible, please have your INR redrawn tomorrow or at the latest on Monday. Recommend elevation, as well as ice application of your arm to help reduce bruising. Please return to the ED sooner if experience worsening symptoms or other concerns. Discharge Date/Time: 05/13/18 13:07
[2018-05-13 10:15] LABS: INR 3.1 (0.8-1.2); PT - PROTHROMBIN TIME 34.8 secs (9.9-12.6)
[2018-05-13 10:23] LABS: PARTIAL THROMBOPLASTIN TIME 41.3 secs (24.9-33.3)
--- NOTE | 2018-05-13 10:35 | XRAY Report ---
Reason: extensive bruising and pain Procedure Date: 05/13/2018 Accession Number: [id number] / [id number] Procedure: XR - Forearm LT CPT Code: FULL RESULT: EXAM: LEFT FOREARM RADIOGRAPHY EXAM DATE: 05/13/2018 10:08 AM. CLINICAL HISTORY: Extensive bruising and pain. COMPARISON: None. TECHNIQUE: 2 views. FINDINGS: Bones: Bony demineralization diffusely. No acute fracture identified. Joints: No dislocation. Degenerative change within the wrist is most prominent at the first carpometacarpal joint. Soft Tissues: No radiopaque foreign body. IMPRESSION: Bony demineralization diffusely. No acute fracture or dislocation identified. [facility]
--- NOTE | 2018-05-13 12:18 | Ultrasound Report ---
Reason: Left arm extensive bruising and pain Procedure Date: 05/13/2018 Accession Number: [id number] / [id number] Procedure: US - Duplex Venous Limited CPT Code: FULL RESULT: EXAM: LEFT UPPER EXTREMITY VENOUS ULTRASOUND EXAM DATE: 05/13/2018 11:36 AM. CLINICAL HISTORY: Left arm extensive bruising and pain. COMPARISON: None. TECHNIQUE: Real-time sonographic vascular imaging was performed by the patcher helper through the upper extremity utilizing both color-flow and Doppler spectral analysis. Multiple customer service representative teacher static images were saved for review. FINDINGS: Internal Jugular Vein (IJV): Normal. Subclavian Vein (SCV): Normal. Axillary Vein : Normal. Cephalic Vein (superficial vein): Normal. Basilic Vein (superficial vein): Normal. Brachial Vein: Normal. Contralateral Side: Subclavian Vein: Normal. The median vein of the forearm appears to be thrombosed. Remaining forearm veins appear grossly patent. Other: None. IMPRESSION: 1. No convincing deep vein thrombosis. 2. Superficial thrombophlebitis of the median vein of the forearm. [facility]
[2018-05-13 12:54] VITALS: BP 198/101
== END 2018-05-13 13:07 | disposition home or self-care (01) ==
LOC: EDUNIT# → ED 09:18
DX: I82.612 Acute embolism and thrombosis of superficial veins of left upper extremity (principal); I80.8 Phlebitis and thrombophlebitis of other sites; M79.81 Nontraumatic hematoma of soft tissue; I10 Essential (primary) hypertension; Z79.01 Long term (current) use of anticoagulants; I48.91 Unspecified atrial fibrillation; Z87.891 Personal history of nicotine dependence
CPT/HCPCS: 36415; 85610; 85730; 93971; 99283

== ENCOUNTER 2018-05-15 08:00 | Outpatient (CLI) | payer MEDICARE, OTHER | END 2018-05-15 23:59 | disposition home or self-care (01) | LOC: LAB.N 08:00 | PROVIDERS: ATTEND Family Medicine | DX: I48.91 Unspecified atrial fibrillation (principal) | CPT/HCPCS: 85610 ==

== ENCOUNTER 2018-05-22 08:00 | Outpatient (CLI) | payer MEDICARE, OTHER | END 2018-05-22 23:59 | disposition home or self-care (01) | LOC: LAB.N 08:00 | PROVIDERS: ATTEND Family Medicine | DX: I48.91 Unspecified atrial fibrillation (principal) | CPT/HCPCS: 85610 ==

== ENCOUNTER 2018-05-29 10:05 | Outpatient (CLI) | payer MEDICARE, OTHER | END 2018-05-29 23:59 | disposition home or self-care (01) | LOC: LAB.N 10:05 | PROVIDERS: ATTEND Family Medicine | DX: I48.91 Unspecified atrial fibrillation (principal) | CPT/HCPCS: 85610 ==

== ENCOUNTER 2018-06-26 08:00 | Outpatient (CLI) | payer MEDICARE, OTHER | END 2018-06-26 23:59 | disposition home or self-care (01) | LOC: LAB.N 08:00 | PROVIDERS: ATTEND Family Medicine | DX: I48.91 Unspecified atrial fibrillation (principal) | CPT/HCPCS: 85610 ==

== ENCOUNTER 2018-07-03 08:00 | Outpatient (CLI) | payer MEDICARE, OTHER | END 2018-07-03 23:59 | disposition home or self-care (01) | LOC: LAB.N 08:00 | PROVIDERS: ATTEND Family Medicine | DX: I48.91 Unspecified atrial fibrillation (principal) | CPT/HCPCS: 85610 ==

== ENCOUNTER 2018-07-10 08:00 | Outpatient (CLI) | payer MEDICARE, OTHER | END 2018-07-10 23:59 | disposition home or self-care (01) | LOC: LAB.N 08:00 | PROVIDERS: ATTEND Family Medicine | DX: I48.91 Unspecified atrial fibrillation (principal) | CPT/HCPCS: 85610 ==

== ENCOUNTER 2018-10-03 17:00 | Outpatient (CLI) | payer MEDICARE, OTHER | END 2018-10-03 23:59 | disposition home or self-care (01) | LOC: LAB.R 17:00 | PROVIDERS: ATTEND Obstetrics & Gynecology | DX: N39.0 Urinary tract infection, site not specified (principal) | CPT/HCPCS: 87077; 87086; 87181 ==

== ENCOUNTER 2019-05-16 13:24 | Outpatient (CLI) | payer MEDICARE, OTHER | END 2019-05-16 13:25 | disposition critical access hospital (66) | LOC: EMS 13:24 | PROVIDERS: ATTEND Surgery | DX: R50.9 Fever, unspecified (principal); R06.02 Shortness of breath | CPT/HCPCS: A0425; A0429 ==

== ENCOUNTER 2019-05-16 13:41 | Emergency (ER) | payer MEDICARE, OTHER ==
--- NOTE | 2019-05-16 14:37 | XRAY Report ---
Reason: shortness of breath, COPD Procedure Date: 05/16/2019 Accession Number: [id number] / [id number] Procedure: XR - Chest 2 View X-Ray CPT Code: 05826 Final Report FULL RESULT: EXAM: CHEST RADIOGRAPHY EXAM DATE: 05/16/2019 02:27 PM. CLINICAL HISTORY: Shortness of breath, COPD. COMPARISON: CHEST 2 VIEW 07/26/2017 10:42 AM. TECHNIQUE: 2 views. FINDINGS: Lungs/Pleura: There is reticular opacity within the lungs. There is bibasilar opacity. There is no evidence of pneumothorax. Mediastinum: There is mild cardiomegaly. There is thoracic aortic calcification. Other: None. IMPRESSION: 1. There is mild cardiomegaly. Normal lung volumes. 2. There are moderate-sized bilateral pleural effusions. There is diffuse reticular opacity within the lungs. Findings could represent lung edema. 3. More focal opacity within the lung bases may represent atelectasis or infiltrates. 4. There is no evidence of pneumothorax. RADIA
--- NOTE | 2019-05-16 15:39 | ED Physician Documentation ---
History of Present Illness - Stated complaint Stated Complaint: COPD - Chief complaint Chief Complaint: Resp - History obtained from History obtained from: Patient (83-year-old female comes in today chief complaint of feeling short of breath, having increase her oxygen over the last several days. She is been wearing oxygen for the last 3 weeks approximately 1 to 2 L. She is now up to 3 L/day at the correction. Approximate 3 weeks ago she was seen by her PCP provider who "stopped 1 of her medications", she then developed the symptoms. She does not recall the name of the medication. She also has some complaints of having increased swelling to lower legs bilateral. She does have a history of A. fib, and she is on Coumadin for this.) Review of Systems Constitutional: reports: Chills. denies: Fever, Fatigue Eyes: reports: Reviewed and negative Ears: reports: Reviewed and negative Nose: reports: Reviewed and negative Cardiac: reports: Pedal edema. denies: Chest pain / pressure, Palpitations Respiratory: denies: Dyspnea, Cough, Wheezing GI: denies: Abdominal Pain, Nausea, Vomiting, Diarrhea (Beyond her normal) : denies: Dysuria, Hesitancy Skin: reports: Reviewed and negative Musculoskeletal: reports: Reviewed and negative PD PAST MEDICAL HISTORY - Past Medical History Past Medical History: Yes Cardiovascular: Hypertension, Atrial fibrillation Respiratory: Shortness of breath, Sleep apnea, CPAP use, Other Endocrine/Autoimmune: HyPERthyroidism GI: Chronic diarrhea : Other HEENT: Other Psych: Anxiety Musculoskeletal: Osteoporosis, Chronic back pain Derm: None - Past Surgical History Past Surgical History: Yes General: Cholecystectomy /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: 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 - Present Medications Home Medications: Ambulatory Orders Medication Instructions Recorded Confirmed Dapsone 100 mg PO DAILY 12/19/14 04/04/19 Folic Acid 1.5 mg PO DAILY 12/19/14 04/04/19 Methotrexate 15 mg IM ONCE MDD once 12/19/14 04/04/19/Monday Metoprolol Tartrate 200 mg PO DAILY 12/19/14 04/04/19 Warfarin Sodium 5 mg PO DAILY 12/19/14 04/04/19 raNITIdine [Zantac] 150 mg PO DAILY 12/19/14 04/04/19 traZODone [Desyrel] 50 mg PO HS 12/19/14 04/04/19 Levothyroxine [Synthroid] 75 mcg PO QDAC 12/09/15 04/04/19 Cefuroxime Axetil [Cefuroxime] 500 mg PO BID #19 tablet 07/26/17 04/04/19 Prednisone 5 mg DAILY 07/26/17 04/04/19 Acetaminophen [Extra Strength 500 mg PO DAILY 05/13/18 04/04/19 Non-Aspirin] Estradiol [Vagifem] 10 mcg VG DAILY 05/13/18 04/04/19 Saccharomyces Boulardii [Florastor] 250 mg PO DAILY 05/13/18 04/04/19 Furosemide [Lasix] 20 mg PO DAILY #30 tablet 05/16/19 Potassium Chloride 10 meq PO DAILY #30 tablet.er 05/16/19 - Allergies Allergies/Adverse Reactions: Allergies Allergy/AdvReac Type Severity Reaction Status Date / Time Sulfa (Sulfonamide Allergy Unknown Verified 04/04/19 11:35 Antibiotics) - Social History Does the pt smoke?: Yes Smoking Status: Current every day smoker Does the pt drink ETOH?: No Does the pt have substance abuse?: No - Immunizations Immunizations are current?: No Immunizations: TDAP >10years/unknown - POLST Patient has POLST: No PD ED PE NORMAL - General General: Alert and oriented X 3, No acute distress, Well developed/nourished - HEENT HEENT: Atraumatic, PERRL, EOMI, Ears normal, Moist mucous membranes, Pharynx benign - Neck Neck: No adenopathy - Respiratory Respiratory: No respiratory distress - Abdomen Abdomen: Soft, Non tender, Non distended PD ED PE EXPANDED - Cardiac Cardiac: Other (Pleasant 33-year-old female comes in today with chief complaint of having some shortness of breath times approximately 3 weeks, and is not improving. She states she has had increase her oxygen from 3 L of 3 L and wearing daily now for the last 3 weeks. She denies a cough and fever at home. She states that approximate 3 weeks ago she was taken off the medication by her PCP and her problems started at that point. She also has noticed some increased swelling to her lower extremities. Atrial fibrillation on rn cardiac rehab) - Respiratory Respiratory: Accessory mm use, Decreased breath sounds. No: Wheezing, Rhonchi - Extremities Extremities: Swelling Results - Vitals Vitals: Vital Signs - 24 hr 05/16/19 05/16/19 05/16/19 13:43 16:24 17:13 Temperature 36.4 C L 36.8 C Heart Rate 115 H 108 H 99 Respiratory 22 21 18 Rate Blood Pressure 162/102 H 190/98 H 190/104 H O2 Saturation 93 97 97 Oxygen O2 Source [] Nasal cannula O2 Source [] Nasal cannula O2 Source Nasal cannula Oxygen Flow Rate 3 - EKG (time done) No standard instances Rate: Tachy Rhythm: Atrial fibrillation Computer interpretation: Agree with computer - Labs Labs: Laboratory Tests 05/16/19 05/16/19 05/16/19 15:51 15:51 15:51 WBC 8.6 RBC 3.38 L Hgb 11.1 L Hct 34.5 L MCV 102.1 H MCH 32.8 H MCHC 32.2 RDW 16.2 H Plt Count 177 MPV 11.0 H Neut # (Auto) 6.5 Lymph # (Auto) 1.3 L Laurens # (Auto) 0.7 Eos # (Auto) 0.1 Baso # (Auto) 0.0 Absolute Nucleated RBC 0.00 Nucleated RBC % 0.0 Sodium 134 L Potassium 3.2 L Chloride 97 L Carbon Dioxide 29 Anion Gap 8.0 BUN 19 Creatinine 0.8 Estimated GFR (MDRD) 69 L Glucose 117 H Calcium 8.7 Total Bilirubin 1.0 AST 23 ALT 21 Alkaline Phosphatase 23 L Troponin I High Sens B-Natriuretic Peptide 1089 H Total Protein 7.0 Albumin 4.0 Globulin 3.0 Albumin/Globulin Ratio 1.3 Lipase 54 H 05/16/19 15:51 WBC RBC Hgb Hct MCV MCH MCHC RDW Plt Count MPV Neut # (Auto) Lymph # (Auto) [place] # (Auto) Eos # (Auto) Baso # (Auto) Absolute Nucleated RBC Nucleated RBC % Sodium Potassium Chloride Carbon Dioxide Anion Gap BUN Creatinine Estimated GFR (MDRD) Glucose Calcium Total Bilirubin AST ALT Alkaline Phosphatase Troponin I High Sens 15.6 H* B-Natriuretic Peptide Total Protein Albumin Globulin Albumin/Globulin Ratio Lipase - Rads (name of study) No standard instances Radiology: Final report received (moderate-sized bilateral pleural efffusion. di ffuse reticular opacity within the lungs. findings could represent lung edema. More focal opacity within the lung bases may represent atelctasis or infiltrates.) PD MEDICAL DECISION MAKING - ED course Complexity details: reviewed results, re-evaluated patient, considered differential (pneumonia, influenza, CHF. ), d/w patient, d/w family Departure - Departure Disposition: 01 Home, Self Care Clinical Impression: Congestive heart failure Qualifiers: Heart failure type: unspecified Heart failure chronicity: unspecified Qualified Code(s): I50.9 - Heart failure, unspecified Condition: Good Instructions: ED CHF General Prescriptions: Furosemide [Lasix] 20 mg PO DAILY #30 tablet Potassium Chloride 10 meq PO DAILY #30 tablet.er Comments: As I discussed with you today in the ED, it appears that you have some extra fluid buildup on your heart. This is related to what is called congestive heart failure, and I am basing this on the laboratory results that were obtained today. You were given a medication called Lasix, a water pill, in the ED today. You are also being sent home with 2 prescriptions, one is for the Lasix to take each morning and the second is for potassium chloride to take each morning as well. Watch to take these until you follow-up with your primary care physician next week. These medications will help reduce some fluid in your body which help you breathe easier and hopefully require less oxygen. Should your symptoms worsen requiring more oxygen, or your swelling in your legs get significantly worse before your appointment with your primary care you are welcome to follow-up with the ED for further evaluation and treatment. Discharge Date/Time: 05/16/19 17:00
[2019-05-16 15:57] LABS: BASOPHILS % (AUTO) 0.3 %; EOSINOPHILS # (AUTO) 0.1 10^3/uL (0.0-0.7); EOSINOPHILS % (AUTO) 0.6 %; HGB - HEMOGLOBIN 11.1 g/dL (12.0-16.0); LYMPHOCYTES # (AUTO) 1.3 10^3/uL (1.5-3.5); LYMPHOCYTES % (AUTO) 15.3 %; MEAN CORPUSCULAR HEMOGLOBIN 32.8 pg (27.0-31.0); MEAN CORPUSCULAR HGB CONC 32.2 g/dL (32.0-36.0); MEAN CORPUSCULAR VOLUME 102.1 fL (81.0-99.0); MONOCYTES # (AUTO) 0.7 10^3/uL (0.0-1.0); MONOCYTES % (AUTO) 7.9 %; NEUTROPHILS # (AUTO) 6.5 10^3/uL (1.5-6.6); NEUTROPHILS % (AUTO) 75.4 %; PLT - PLATELET COUNT 177 10^3/uL (130-450); RED BLOOD COUNT 3.38 10^6/uL (4.20-5.40); RED CELL DISTRIBUTION WIDTH 16.2 % (12.0-15.0); WHITE BLOOD COUNT 8.6 x10^3/uL (4.8-10.8)
[2019-05-16 16:13] LABS: ALBUMIN/GLOBULIN RATIO 1.3 (1.0-2.2); CALCIUM 8.7 mg/dL (8.5-10.3); CREATININE 0.8 mg/dL (0.4-1.0)
[2019-05-16] MEDS ORDERED: FUROSEMIDE 20 MG TABLET PO STA (16:32)
[2019-05-16 17:14] VITALS: BP 190/104
== END 2019-05-16 17:00 | disposition home or self-care (01) ==
LOC: EDBD → EDUNIT# → ED 13:41
DX: I11.0 Hypertensive heart disease with heart failure (principal); I50.9 Heart failure, unspecified; F17.210 Nicotine dependence, cigarettes, uncomplicated; Z99.81 Dependence on supplemental oxygen
CPT/HCPCS: 36415; 71046; 80053; 83690; 83880; 84484; 85025; 93005; 99284; A9270; 80048

== ENCOUNTER 2019-09-03 16:31 | Outpatient (CLI) | payer MEDICARE, OTHER ==
--- NOTE | 2019-09-04 09:26 | XRAY Report ---
PROCEDURE: Lumbar Spine 2 View INDICATIONS: SEVERE BACK PAIN TECHNIQUE: 2 views of the lumbar spine were acquired. COMPARISON: 09/24/2015 FINDINGS: Bones: 5 [id number] vertebrae are present. Normal AP alignment. There is a chronic L1 mild comp ression fracture without significant change since prior study. There has been interval development of superior endplate compression of L2 with anterior spur formation. No visible retropulsion of fragmen ts. There is mild chronic scalloping of the L4 superior endplate without vertebral body height loss. Moderate degenerative disc height loss at L4-5 and L5-S1, stable. Soft tissues: Overlying bowel gas pattern is normal. No suspicious soft tissue calcifications. Hea vy abdominal aortic and biiliac calcification. There are surgical changes in the right upper quadrant of the abdomen. IMPRESSION: 1. Interval development of a mild L2 compression fracture since the prior study, but chronicity is un certain. MRI of the lumbar spine is recommended to assess for osseous edema. 2. Chronic L1 compression fracture, L4 superior endplate scalloping, and degenerative disc height los s in the low lumbar spinal appear stable. 3. Heavy atherosclerosis. Reviewed by: Syeda Wall MD on 09/04/2019 9:25 AM PDT Approved by: Syeda Wall MD on 09/04/2019 9:25 AM PDT Station ID: [id number]
== END 2019-09-03 16:32 | disposition home or self-care (01) ==
LOC: DI 16:31
PROVIDERS: ATTEND Internal Medicine
DX: M48.56XA Collapsed vertebra, not elsewhere classified, lumbar region, initial encounter for fracture (principal); R11.2 Nausea with vomiting, unspecified; B37.0 Candidal stomatitis
CPT/HCPCS: 72100

== ENCOUNTER 2019-09-05 18:04 | Outpatient (CLI) | payer MEDICARE, OTHER | END 2019-09-05 18:05 | disposition critical access hospital (66) | LOC: EMS 18:04 | PROVIDERS: ATTEND Surgery | DX: M54.9 Dorsalgia, unspecified (principal); R29.6 Repeated falls | CPT/HCPCS: A0425; A0429 ==

== ENCOUNTER 2019-09-05 18:22 | Emergency (ER) | payer MEDICARE, OTHER ==
[2019-09-05] MEDS ORDERED: SODIUM CHLORIDE 0.9% 1,000 ML IV STA (18:40)
--- NOTE | 2019-09-05 18:40 | ED Physician Documentation ---
History of Present Illness - Stated complaint Stated Complaint: GLF - History obtained from History obtained from: Patient, EMS - Additonal information Additional information: Patient comes emergency department via EMS after taking a fall at her care facility today. Patient has a history of falls recently and this is reportedly her third fall in the last 24 hours. Patient states first 2 falls involved her losing her balance while walking with her walker, but patient states that this time, her legs just felt weak and she slid down her dresser and sat down on her bottom. Patient denies any new pain since the "slide" today. She states that she has been having back pain since 1 of her other falls and records demonstrate that the patient had a lumbar spine x-ray which showed a compression fracture. Patient states that she has become weak because she is not able to do PT because she was too weak to get out of the chair, and she is bothered by this because she feels as though it is worsening her propensity to falls. Patient denies any fevers or chills. No cough or shortness of breath that are worse than usual. No chest pain. No nausea vomiting or area. No abdominal pain. No headache. No head injury. No neck pain. No dysuria. No other complaints at this time. Review of Systems Ten Systems: 10 systems reviewed and negative Constitutional: reports: Reviewed and negative Eyes: reports: Reviewed and negative Ears: reports: Reviewed and negative Nose: reports: Reviewed and negative Throat: reports: Reviewed and negative Cardiac: reports: Reviewed and negative Respiratory: reports: Reviewed and negative GI: reports: Reviewed and negative : reports: Reviewed and negative Skin: reports: Reviewed and negative Musculoskeletal: reports: Back pain Neurologic: reports: Reviewed and negative Psychiatric: reports: Reviewed and negative Endocrine: reports: Reviewed and negative Immunocompromised: reports: Reviewed and negative PD PAST MEDICAL HISTORY - Past Medical History Cardiovascular: Hypertension, Atrial fibrillation Respiratory: Shortness of breath, Sleep apnea, CPAP use, Other Endocrine/Autoimmune: HyPERthyroidism GI: Chronic diarrhea : Other HEENT: Other Psych: Anxiety Musculoskeletal: Osteoporosis, Chronic back pain Derm: None - Past Surgical History Past Surgical History: Yes 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: 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 - Present Medications Home Medications: Ambulatory Orders Medication Instructions Recorded Confirmed Dapsone 100 mg PO DAILY 12/19/14 06/27/19 Folic Acid 1.5 mg PO DAILY 12/19/14 06/27/19 Methotrexate 15 mg IM ONCE MDD once 10/23/15 04/30/20 weekly/Monday Metoprolol Tartrate 200 mg PO DAILY 12/19/14 06/27/19 Warfarin Sodium 5 mg PO DAILY 12/19/14 06/27/19 raNITIdine [Zantac] 150 mg PO DAILY 12/19/14 06/27/19 traZODone [Desyrel] 50 mg PO HS 12/19/14 06/27/19 Levothyroxine [Synthroid] 75 mcg PO QDAC 12/09/15 06/27/19 Prednisone 5 mg DAILY 07/26/17 06/27/19 Acetaminophen [Extra Strength 500 mg PO DAILY 05/13/18 06/27/19 Non-Aspirin] Furosemide [Lasix] 20 mg PO DAILY #30 tablet 05/16/19 06/27/19 Potassium Chloride 10 meq PO DAILY #30 tablet.er 05/16/19 06/27/19 - Allergies Allergies/Adverse Reactions: Allergies Allergy/AdvReac Type Severity Reaction Status Date / Time Sulfa (Sulfonamide Allergy Unknown Verified 09/05/19 18:39 Antibiotics) - Social History Does the pt smoke?: Yes Smoking Status: Current every day smoker Does the pt drink ETOH?: No Does the pt have substance abuse?: No - Immunizations Immunizations are current?: No Immunizations: TDAP >10years/unknown - POLST Patient has POLST: No PD ED PE NORMAL - Vitals Vital signs reviewed: Yes - General General: Alert and oriented X 3, No acute distress - HEENT HEENT: Atraumatic, PERRL, EOMI, Moist mucous membranes - Neck Neck: Supple, no meningeal sign, No bony TTP - Cardiac Cardiac: RRR, No murmur, Strong equal pulses - Respiratory Respiratory: No respiratory distress, Clear bilaterally - Abdomen Abdomen: Soft, Non tender, Non distended - Back Back: No CVA TTP, Other (Patient has tenderness to palpation over the L2-4 area. No step-off.) - Derm Derm: Normal color, Warm and dry, No rash, Other (No trauma) - Extremities Extremities: No deformity, No edema, No calf tenderness / cord - Neuro Neuro: Alert and oriented X 3, provider scribe 2-12 intact, No motor deficit, No sensory deficit, Normal speech, Other (Patient is mentally clear and able to give coherent history on her own. GCS 15.) - Psych Psych: Normal mood, Normal affect Results - Vitals Vitals: Oxygen O2 Source [Without Activity] Nasal cannula O2 Source [With Activity] Nasal cannula O2 Source Nasal cannula PD MEDICAL DECISION MAKING - ED course Complexity details: reviewed old records, reviewed results, re-evaluated patient, considered differential, d/w patient ED course: The patient was evaluated by myself on arrival with EMS. She did not report head injury and had no neck tenderness or pain. Given that I cannot be clear on the nature of her first 2 falls I did go ahead and order a CT of the head and C- spine to be sure that there had been no trauma from patient's prior falls, though if case. I did also order IV fluids and labs for the patient. The patient will be signed out to Dr. Welch, who is the oncoming emergency physician, pending results of work-up and final disposition.
[2019-09-05 19:03] LABS: BASOPHILS % (AUTO) 0.3 %; EOSINOPHILS # (AUTO) 0.1 10^3/uL (0.0-0.7); EOSINOPHILS % (AUTO) 0.9 %; HGB - HEMOGLOBIN 9.3 g/dL (12.0-16.0); LYMPHOCYTES # (AUTO) 1.8 10^3/uL (1.5-3.5); LYMPHOCYTES % (AUTO) 22.7 %; MEAN CORPUSCULAR HEMOGLOBIN 34.3 pg (27.0-31.0); MEAN CORPUSCULAR HGB CONC 32.2 g/dL (32.0-36.0); MEAN CORPUSCULAR VOLUME 106.6 fL (81.0-99.0); MEAN PLATELET VOLUME 11.8 fL (7.9-10.8); MONOCYTES # (AUTO) 0.5 10^3/uL (0.0-1.0); MONOCYTES % (AUTO) 6.1 %; NEUTROPHILS # (AUTO) 5.5 10^3/uL (1.5-6.6); NEUTROPHILS % (AUTO) 69.5 %; PLT - PLATELET COUNT 129 10^3/uL (130-450); RED BLOOD COUNT 2.71 10^6/uL (4.20-5.40); WHITE BLOOD COUNT 7.9 x10^3/uL (4.8-10.8)
[2019-09-05 19:11] LABS: ALBUMIN 3.9 g/dL (3.2-5.5); ALBUMIN/GLOBULIN RATIO 1.2 (1.0-2.2); BILIRUBIN,TOTAL 1.1 mg/dL (0.2-1.0); CALCIUM 8.9 mg/dL (8.5-10.3); TOTAL PROTEIN 7.2 g/dL (6.7-8.2)
--- NOTE | 2019-09-05 19:36 | CT Report ---
PROCEDURE: HEAD WO INDICATIONS: fall/trauma TECHNIQUE: Noncontrast 4.5 mm thick angled axial sections acquired from the foramen magnum to the vertex. For r adiation dose reduction, the following was used: automated exposure control, adjustment of mA and/or kV according to patient size. COMPARISON: None FINDINGS: Image quality: Excellent. CSF spaces: Basal cisterns are patent. No extra-axial fluid collections. The ventricles are symmet ye in size and shape. Brain: No intracranial bleeds or masses. There is cerebral volume loss for age, with resultant vent ricular and sulcal prominence. There are periventricular and deep white matter chronic small vessel ischemic changes. There is intracranial internal carotid artery atherosclerosis. Skull and face: Calvarium and visualized facial bones appear intact, without suspicious lesions. Sinuses: Visualized sinuses and mastoids are clear. IMPRESSION: 1. No CT evidence of acute intracranial pathology. No acute skull fracture. 2. Diffuse atrophy and mild to moderate white matter chronic small vessel ischemic changes. Reviewed by: Tj Pepper MD on 09/05/2019 7:35 PM PDT Approved by: Tj Pepper MD on 09/05/2019 7:35 PM PDT Station ID: [id number]
--- NOTE | 2019-09-05 19:37 | CT Report ---
PROCEDURE: CERVICAL SPINE WO INDICATIONS: fall/trauma TECHNIQUE: Noncontrast 3 mm thick sections acquired from the skull base to the T4 level. Sagittal and coronal r eformats were then constructed. For radiation dose reduction, the following was used: automated exp osure control, adjustment of mA and/or kV according to patient size. COMPARISON: None. FINDINGS: Image quality: Excellent. Bones: No fractures or dislocations. Degenerative disc disease throughout cervical spine is seen mo re prominent at C5-6 and C6-7 levels causing mild central canal stenosis, no significant neural aj inal narrowing. Visualized superior ribs are intact. Soft tissues: Prevertebral soft tissues are normal in thickness. No paravertebral hematomas. No ap ical pneumothoraces. Biapical scarring is seen. IMPRESSION: 1. No acute cervical spine fracture or dislocation. 2. Degenerative disc disease throughout cervical spine as above. Reviewed by: Tj Pepper MD on 09/05/2019 7:36 PM PDT Approved by: Tj Pepper MD on 09/05/2019 7:36 PM PDT Station ID: [id number]
[2019-09-05] MEDS ORDERED: MORPHINE 2 MG/ML CARPUJECT IVP STA (20:11)
[2019-09-05] MEDS ORDERED: MORPHINE 2 MG/ML CARPUJECT IVP PRN (20:26)
[2019-09-05] MEDS ORDERED: SODIUM CHLORIDE FLUSH 0.9% 10 ML SYRINGE IVP PRN (20:26)
[2019-09-05] MEDS ORDERED: ONDANSETRON ODT 4 MG TABLET TL PRN (20:26)
[2019-09-05] MEDS ORDERED: ACETAMINOPHEN 325 MG TABLET PO PRN (20:26)
[2019-09-05] MEDS ORDERED: ONDANSETRON 4 MG/2 ML VIAL IVP PRN (20:26)
[2019-09-05] MEDS ORDERED: oxyCODONE 5 MG TABLET PO PRN (20:32)
--- NOTE | 2019-09-05 20:40 | HISTORY & PHYSICAL EXAMINATION ---
Chief Complaint - Chief Complaint Chief Complaint: back pain and leg weakness w falls History of Present Illness - Admitted From Admitted From:: SHOSHANA/ER - History [facility] History obtained from: Dr. Welch - History of Present Illness HPI Comment/Other: This sher[place] lady lives in an assisted living facility. 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 This diagnosis was made in 2014. She went from living independently to living in an assisted living facility. She still regards her self and is an active participant within the community there. She already has a history of an L1 compression fracture dating to 2017 CT. She fell on her facility today. She has been falling more recently, and has had her third fall in 24 hours. The first 2 falls were because of losing her balance while walking with her walker, but the third fall is her legs just giving out from underneath her. Over the last week she has been having increasing back pain. Presented to the emergency room and she is been diagnosed as a new L2 fracture and a chronic L1 fracture. She is on Miacalcin. She is felt to be at risk for returning to home because of weakness. And needs control of pain. In the emergency room is asking for observation placement to control pain. History - Past Medical History Cardiovascular: reports: Hypertension, Atrial fibrillation (New diagnosis August 2014. On rate control and anticoagulation since.) Respiratory: reports: COPD (By chest x-ray diagnosis only. She does not meet criteria on pulmonary function studies.), Pneumonia (06/2017 outpt tx), Shortness of breath (Seen in ER April 2019 after tapering off 1 of her inflammation meds. Diagnosis congestive heart failure in the ER. Hx of echo August 2014 showed LV normal size. EF 55 to 60%. RV normal and no elevated pulm pressures. No valve dz. SOB from myositis), Sleep apnea, CPAP use, Other Endocrine/Autoimmune: reports: HyPERthyroidism GI: reports: Chronic diarrhea, Other (hepatic aneurysm treated with interventional coil 2011) COAT TAILOR: reports: Other (cystocele with pessary) : reports: Incontinence, Other (cystocele with pessary in place) HEENT: reports: Other (Chronic dysphasia. Has been seen by ENT and has had a speech therapy evaluation here in 2014) Psych: reports: Depression, Anxiety Musculoskeletal: reports: Osteoarthritis, Osteoporosis (L1 mild noted 06/2017 Ct abd), Chronic back pain Derm: reports: None MRSA Hx?: No Other Past Medical History: Presented as slowly progressing diffuse muscle weakness, unexplained weight loss, dysphasia with early satiety in 2014. She was seen by ENT for dysphasia, vocal cord cyst removed. Enlarged bilateral s aliva glands evaluated. Pulmonology saw her at [facility] and pulmonary function studies did not meet Criteria for COPD or interstitial lung disease. Minimal response to bronchodilators. In July 2014 she had a muscle biopsy which showed equivocal changes of myositis. Admitted August 2014 with Juan. doyle with RVR and severe weakness. Transfer to [facility] because of severe disability and spent 40 days there. 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 She is on dapsone, methotrexate, and IVIG. She has anemia of chronic disease with Hgb 10 on average due to meds and inflammation. - Past Surgical History General: reports: Cholecystectomy, Other (Breast biopsy 2001) /COAT TAILOR: reports: 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 (1972) HEENT: reports: Cataracts (right eye done 04/2017, left 05/2017) Derm: reports: Other (onymychosis of finger nails) - Family & Social History Family History Comment/Other: Mother at age 87 from old age. Father a t age 83 of old age. 1 sister has had a stroke and no cancers or heart attack or thyroid disease. No one has neuromuscular disease. One daughter is healthy. Living arrangement: Assisted living Living Situation: Alone Social History Notes: . Was living in a [id number] apartment at her daughter's house and a very independent person. As her myositis and muscular strength disease became more symptomatic, she had to go live at assisted living facility, [facility]. Smoked 1 pack/day for 60 years. No history of alcohol abuse. Daughter is Luanne BLANK [phone] - Substance History Use: Uses substance without health or social issues: NONE Abuse: Recurrent use of substance despite neg consequences: NONE Dependence: Experiences withdrawal or developed tolerances: NONE - POLST Patient has POLST: Yes POLST Status: DNR (with limited interventions) Meds/Allgy - Home Medications Home Medications: Ambulatory Orders Medication Instructions Recorded Confirmed Dapsone 100 mg PO DAILY 12/19/14 06/27/19 Folic Acid 1.5 mg PO DAILY 12/19/14 06/27/19 Methotrexate 15 mg PO ONCE MDD once 12/19/14 06/27/19/Monday Metoprolol Tartrate 200 mg PO DAILY 12/19/14 06/27/19 traZODone [Desyrel] 50 mg PO HS 12/19/14 06/27/19 Levothyroxine [Synthroid] 75 mcg PO QDAC 12/09/15 06/27/19 Prednisone 5 mg DAILY 07/26/17 06/27/19 Acetaminophen [Extra Strength 500 mg PO DAILY 05/13/18 06/27/19 Non-Aspirin] Furosemide [Lasix] 20 mg PO DAILY #30 tablet 05/16/19 06/27/19 Potassium Chloride 10 meq PO DAILY #30 tablet.er 05/16/19 06/27/19 Fluticasone/Salmeterol [Advair 1 inh BID 09/05/19 09/05/19 250-50 Diskus] Metoprolol Succinate 200 mg PO DAILY 09/05/19 09/05/19 Miacalcin 200 units DAILY 09/05/19 Rivaroxaban [Xarelto] 20 mg DAILY 09/05/19 09/05/19 Senna [Senokot] 2 tab BID 09/05/19 09/05/19 Tramadol HCl [Conzip] 100 mg PO Q4HR PRN 09/05/19 09/05/19 hydrOXYzine PAMOATE [Vistaril] 25 mg Q4H PRN 09/05/19 09/05/19 - Allergies Allergies/Adverse Reactions: Allergies Allergy/AdvReac Type Severity Reaction Status Date / Time Sulfa (Sulfonamide Allergy Unknown Verified 09/05/19 18:39 Antibiotics) Prior Level of Functionality: Walks with a walker, needs assistance with bathing, dressing. Lives in an assisted living facility. No longer drives. Exam - Vital Signs Reviewed Vital Signs: Yes Vital Signs: Vital Signs x48h Temp Pulse Resp BP Pulse Ox 09/05/19 19:32 66 18 171/91 H 98 09/05/19 18:22 36.6 C 100 16 127/111 H 100 Conclusion/Plan - Problem List (1) Acute back pain less than 4 weeks duration Conclusion/Plan: Causing her legs to buckle from underneath her. In reviewing her history, she has a history of osteoporosis. History of L1 fracture in the past. Found to have a new vertebral compression fracture on plain film today. She lives in assisted living facility and does get help, but at this time she would exceed the requirements to return back safely tonight. Plan: Observation status Pain control with scheduled morphine Add PRN oral opiates PT evaluation in the morning Investigate how the assisted living facility can up their services to have her remain safe as she recovers from this new fracture After this note was started, patient declined observation for fear of cost for her. so admit cancelled. - Lab Results Lab results reviewed: Yes Fish Bones: 09/05/19 18:53 09/05/19 18:53
--- NOTE | 2019-09-05 20:51 | ED Physician Documentation ---
ED Addendum - Addendum Addendum: 09/05/19 20:45 Received sign out from Dr. Pandey at end of her shift; test results on, and disposition of, this patient pending at time of turn over of patient care. Patient has has repeated falls over past few days. Her chief c/o is lower back pain that is distinctly worse with movement. She says she can no longer ambulate due to the pain and the tramadol provided at [facility] is not giving adequate relief. Patient had outpatient LS spine xrays 09/03/19 revealing chronic L1 compression fracture, but interval devlopment of mild L2 compression fracture since prior study (09/24/15). On exam, she has episodes of obvious painful distress and spasm when she tries to move in the bed as well as when I palpate the lumbar spine (performed while she remains lying on stretcher by pushing my hand into the mattress to get to the lumbar spine). MRI recommended by radiology on 09/03/19 reading. Given that she is unable to effectively ambulate due to acute, severe back pain, possibly related to the findings on xrays performed 2 days ago, plan was to admit to hospitalist for pain control, possible MRI in the AM. D/W Dr. De La Rosa, requests that patient sign ABN form after it is reviewed with her (reviewed with patient). Registration reviewed the form with the patient and patient indicates she does not want to stay in the hospital if she might need to pay out of pocket. 09/06/19 03:07
[2019-09-05] MEDS ORDERED: SODIUM CHLORIDE 0.9% 1,000 ML IV SCH (21:00)
[2019-09-05] MEDS ORDERED: oxyCODONE 5 MG TABLET PO SCH (21:00)
[2019-09-05] MEDS ORDERED: MORPHINE 2 MG/ML CARPUJECT IVP SCH (21:00)
[2019-09-05 22:22] VITALS: BP 164/93
[2019-09-06] MEDS ORDERED: SODIUM CHLORIDE FLUSH 0.9% 10 ML SYRINGE IVP SCH (01:00)
== END 2019-09-05 22:48 | disposition home or self-care (01) ==
LOC: EDUNIT# → ED 18:22
DX: S32.020A Wedge compression fracture of second lumbar vertebra, initial encounter for closed fracture (principal); W18.30XA Fall on same level, unspecified, initial encounter; Z91.81 History of falling; Y92.099 Unspecified place in other non-institutional residence as the place of occurrence of the external cause; M33.20 Polymyositis, organ involvement unspecified; M50.322 Other cervical disc degeneration at C5-C6 level; M81.0 Age-related osteoporosis without current pathological fracture; I10 Essential (primary) hypertension; I48.91 Unspecified atrial fibrillation; Z79.01 Long term (current) use of anticoagulants; F17.200 Nicotine dependence, unspecified, uncomplicated
CPT/HCPCS: 36415; 70450; 72125; 80053; 83690; 85025; 96361; 96374; 99285

== ENCOUNTER 2019-09-05 22:54 | Outpatient (CLI) | payer MEDICARE, OTHER | END 2019-09-05 22:55 | disposition home or self-care (01) | LOC: EMS 22:54 | PROVIDERS: ATTEND Surgery | DX: S32.009A Unspecified fracture of unspecified lumbar vertebra, initial encounter for closed fracture (principal); W19.XXXA Unspecified fall, initial encounter | CPT/HCPCS: A0425; A0428 ==

== ENCOUNTER 2019-09-09 12:10 | Outpatient (CLI) | payer MEDICARE, OTHER | END 2019-09-09 12:11 | disposition short-term general hospital (02) | LOC: EMS 12:10 | PROVIDERS: ATTEND Surgery | DX: M54.5 Low back pain (principal); R29.6 Repeated falls | CPT/HCPCS: A0425; A0429 ==

== ENCOUNTER 2019-10-10 13:12 | Outpatient (CLI) | payer MEDICARE, OTHER ==
--- NOTE | 2019-10-10 16:39 | XRAY Report ---
PROCEDURE: Ribs w/PA Chest RT INDICATIONS: R rib pain TECHNIQUE: 3 views of the right ribs were acquired, along with a single view chest. COMPARISON: Chest x-ray 05/16/2019 FINDINGS: Surgical changes and devices: None. Bones and chest wall: No fractures or dislocations. No suspicious bony lesions. Overlying soft tis sues appear unremarkable. Lungs and pleura: Mild effusions bilaterally, decreased compared to prior exam. Chronic interstitial changes are present.. Mediastinum: Mediastinal contours appear normal. Heart size is mildly prominent. IMPRESSION: No visualized acute fracture or dislocation. However, occult injury cannot be excluded. Recommend jeanne rt interval imaging follow-up in 7-10 days as clinically indicated for additional evaluation. Reviewed by: Magui Boucher MD on 10/10/2019 4:37 PM PDT Approved by: Magui Boucher MD on 10/10/2019 4:37 PM PDT Station ID: [id number]
== END 2019-10-10 13:13 | disposition home or self-care (01) ==
LOC: DI.N 13:12
PROVIDERS: ATTEND Nurse Practitioner Gerontology
DX: R07.81 Pleurodynia (principal); N39.0 Urinary tract infection, site not specified